=== PATIENT | female | born 1985 | race Caucasian/White ===

== ENCOUNTER 2024-03-20 19:12 | Emergency (ER) | payer MEDICAID, SELFPAY ==
[2024-03-20 19:19] VITALS: BP 129/94; PULSE 106; RESP 95; TEMP 36.2; O2SAT 96
--- NOTE | 2024-03-20 19:30 | DI.CT_ITS ---
Exam(s) CT HEAD WO EXAM: CT HEAD WO CLINICAL HISTORY: headache s/p hitting head on wall. TECHNIQUE: Imaging Protocol: Axial computed tomography images with coronal and sagittal reformatted images were created and reviewed COMPARISON: No exams were available for comparison FINDINGS: There are no skull fractures. There is no fluid in the visualized paranasal sinuses. There is no evidence of intracranial hemorrhage, mass effect, or shift of midline structures. There are no extra-axial fluid collections. The ventricles are not enlarged or shifted and there is no blo od within the ventricular system nor within the basal cisterns. IMPRESSION: No acute intracranial findings on this noninfused CT scan of the brain. RADIATION DOSE DELIVERED: 945.22mGy.cm Total DLP DATA REPOSITORY: All CT scans at this facility are submitted to the National Radiology Data Registry (NRDR) Dose Index Registry (DIR) with the [employer] ([employer]). RADIATION OPTIMIZATION: All CT scans at this facility use at least one of these dose optimization te chniques: automated exposure control; mA and/or kV adjustment per patient size (includes targeted exa ms where dose is matched to clinical indication); or iterative reconstruction.
--- NOTE | 2024-03-20 19:38 | ED.GENADUL_ITS ---
Discharge Plan Disposition Patient Disposition: Home Condition: Stable Discharge Details Clinical Impression: Blunt head trauma Primary Care Provider: [place],Local ED Provider: Jomar Kirk Home Meds and New Rx's Prescriptions: Continued pantoprazole [Protonix] 20 mg tablet,delayed release (DR/EC) 20 mg PO DAILY pregabalin 100 mg capsule 100 mg PO TID bupropion HCl 150 mg tablet extended release 24 hr 150 mg PO DAILY escitalopram oxalate 10 mg tablet 10 mg PO DAILY Discharge Instructions Additional Instructions: Your CAT scan did not show any concerning findings If you still of symptoms in a week follow-up with your primary care provider If you feel more ill or feel like you are suffering from an emergent medical process return to the emergency department for reevaluation. HPI General Mode of arrival: ambulatory . Date/Time Provider Initiated Documentation: 03/20/24 19:16 . Limitations to Documentation: no limitations . Information obtained by: patient . History of Present Illness 38 year old F presents to the emergency department with the chief complaint of headache s/p hitting her head on a wall yesterday, described as moderate, Quality is described as aching, Patient started experiencing this day(s) (1) and it has been constant. No relieving factors improve symptom(s), No exacerbating factors reported . Patient notes denies chest pain and shortness of breath. Related Data Home Medications ?Medication ?Instructions ?Recorded ?Confirmed bupropion HCl 150 mg 24 hr tablet, 150 mg PO DAILY 03/20/24 03/20/24 extended release escitalopram oxalate 10 mg tablet 10 mg PO DAILY 03/20/24 03/20/24 pantoprazole 20 mg tablet,delayed 20 mg PO DAILY 03/20/24 03/20/24 release (Protonix) pregabalin 100 mg capsule 100 mg PO TID 03/20/24 03/20/24 Allergies Allergy/AdvReac Type Severity Reaction Status Date / Time sol Allergy Severe Anaphylaxis Verified 03/20/24 19:33 latex Allergy Intermediate Swelling/Ed Verified 03/20/24 19:33 paula amoxicillin Allergy Mild Skin Rash Verified 03/20/24 19:33 Penicillins Allergy Mild Skin Rash Verified 03/20/24 19:33 tramadol AdvReac Mild Agitation Verified 03/20/24 19:33 General Stated Complaint: HeadInjury KESHA: 4 Review of Systems All systems reviewed & are unremarkable except as noted in HPI and below Constitutional Constitutional: Denies chills, Denies fever(s), Reports headache(s) and Denies weakness ENT Ears, Nose, Mouth, and Throat: Reports headache(s) Cardiovascular Cardiovascular: Denies chest pain and Denies dyspnea Respiratory Respiratory: Denies cough and Denies dyspnea Gastrointestinal Gastrointestinal: Denies abdominal pain Musculoskeletal Musculoskeletal: Denies joint swelling Neurologic Neurologic: Reports headache(s) and Denies weakness Exam Const General: no acute distress Orientation: alert HENDC Head: normal to inspection and no palpable skull fracture Ears: external ears normal General nose exam: external nose normal Mouth: moist mucous membranes Eyes General: appearance normal, both eyes and all related structures Neck Neck: normal visual inspection Resp Effort & Inspection: normal respiratory effort and able to speak in complete sentences Cardio Rate: regular rate Skin General skin exam: no rashes or lesions noted Neuro General: patient alert and patient oriented x3 Extrem General: normal to inspection Psych Mental Status: mental status grossly normal Course Vital Signs Vital signs: Vital Signs Temperature 36.2 C L 03/20/24 19:19 Pulse 106 H 03/20/24 19:19 Respiratory Rate 95 H 03/20/24 19:19 Blood Pressure 129/94 H 03/20/24 19:19 Pulse Oximetry 96 03/20/24 19:19 Temperature 36.2 C L 03/20/24 19:19 Temperature Source Temporal Artery Scan 03/20/24 19:19 Pulse 106 H 03/20/24 19:19 Respiratory Rate 95 H 03/20/24 19:19 Respiratory Effort Normal 03/20/24 19:29 Respiratory Depth Normal 03/20/24 19:29 Respiratory Pattern Normal 03/20/24 19:29 Blood Pressure 129/94 H 03/20/24 19:19 Blood Pressure Position Sitting 03/20/24 19:19 Pulse Oximetry 96 03/20/24 19:19 Oxygen Delivery Method Room Air 03/20/24 19:19 Oxygen Flow Rate 0 03/20/24 19:19 Pain Level 8 03/20/24 19:19 Comment Headache, ringing in ears. Photosensitivity. 03/20/24 19:19 Medical Decision Making 38-year-old female who has a history of anxiety comes in with 1 day of headaches after she hit her head on the wall after her dog ran into her. She struck the right side of her head on the wall and has had pain in that area since. She denies any vomiting, neck pain, back pain, chest or abdomen pain. She has no significant signs of trauma to the head, pupils are equal and reactive to light. She is oriented x 4, GCS of 15. She has no midline C-spine tenderness. I suspect concussion but given her continued headaches will obtain CT of the head to exclude traumatic injury. CT head shows no acute findings on my read and V rad read. Patient sleeping on reassessment and awakens easily to voice. She is hemodynamically stable and has no other complaints of pain so feel she can follow-up with her PCP if she is not improving. I suspect concussion. Return precautions given. Differential Diagnosis Differential Diagnosis: concussion, tension headache, tbi Quality:SDOH Health Related Social Needs: No Data to Display PFSH All Active Problems (Updated 03/20/24 @ 20:51 by Jomar Kikr MD) Blunt head trauma (Acute) Social History Smoking/Tobacco Use Status: Never Smoking risk assessment performed?: Yes Alcohol Intake: never
[2024-03-20] MEDS: Acetaminophen 500 MG TAB 1000 MG PO (19:48)
--- NOTE | 2024-03-20 20:54 | DI.VRAD_ITS ---
PROCEDURE INFORMATION: Exam: CT Head Without Contrast Exam date and time: 03/20/2024 7:59 PM Age: 38 years old Clinical indication: Other: Headache S/P hitting head on wall TECHNIQUE: Imaging protocol: Computed tomography of the head without contrast. COMPARISON: No relevant prior studies available. FINDINGS: Brain: Normal volume for age. No acute intracranial hemorrhage. Bradley-white matter differentiation is grossly preserved. No edema. No midline shift or herniation. Cerebral ventricles: No ventriculomegaly. Paranasal sinuses: Imaged paranasal sinuses appropriately aerated without air-fluid levels. Mastoid air cells: No mastoid effusion. Bones: Unremarkable. No acute fracture. Soft tissues: No focal soft tissue abnormality. IMPRESSION: No acute intracranial finding. Dictated and Authenticated by: Hakeem Loya MD. Ordering:LUIS Hadley MD
[2024-03-20 21:12] VITALS: BP 98/64; PULSE 82; RESP 14; O2SAT 96
== END 2024-03-20 21:12 | disposition home or self-care (01) ==
PROVIDERS: Emergency Provider Emergency Medicine
DX: S09.8XXA Other specified injuries of head, initial encounter (principal); W54.1XXA Struck by dog, initial encounter; Y93.89 Activity, other specified; Y92.018 Other place in single-family (private) house as the place of occurrence of the external cause
CPT/HCPCS: 99284; 70450